=== PATIENT | male | born 1965 | race Caucasian/White ===

== ENCOUNTER 2024-12-13 14:12 | Inpatient (IN) | payer MEDICARE, OTHER ==
[~2024-12-13] VITALS: Ht 185.4 cm; Wt 98.5 kg
[2024-12-15] MEDS ORDERED: ACETAMINOPHEN 325 MG TABLET PO PRN (14:00)
[2024-12-15] MEDS ORDERED: DEXTROSE 50%-WATER 25 GM/50 ML SYRINGE IVP PRN (14:45)
[2024-12-15 15:44] VITALS: BP 124/64; PULSE 90; RESP 19; TEMP 98.2; O2SAT 98
[2024-12-15] MEDS ORDERED: HEPARIN SODIUM,PORCINE 5,000 UNITS/ML VIAL SQ SCH (16:00)
[2024-12-15] MEDS ORDERED: CefTRIAXone 1 GM/DEXTROSE 50 ML IV SCH (17:45)
[2024-12-15] MEDS: INSULIN LISPRO 100 UNITS/ML SQ SCH (17:58)
[2024-12-15 18:15] LABS: GLUCOMETER DEV NAME(LOC) 2WR.2B; GLUCOSE,POINT OF CARE 132 MG/DL (70-110)
[2024-12-15 20:36] VITALS: BP 118/72; PULSE 97; RESP 18; TEMP 97.8; O2SAT 95
[2024-12-15] MEDS: OxyCODONE HCL/ACETAMINOPHEN 5-325 MG TABLET PO PRN (20:36)
[2024-12-15] MEDS: INSULIN LISPRO 100 UNITS/ML SQ PRN (20:40)
[2024-12-15] MEDS: INSULIN GLARGINE,HUM.REC.ANLOG 100 UNITS/ML SQ SCH (20:42)
[2024-12-15 21:21] LABS: GLUCOMETER DEV NAME(LOC) 2WR.1D; GLUCOSE,POINT OF CARE 159 MG/DL (70-110)
[2024-12-16 00:35] VITALS: O2SAT 95
[2024-12-16] MEDS ORDERED: SODIUM CHLORIDE 0.9% 250 ML IV ONE (05:32)
[2024-12-16] MEDS: CefTRIAXone SODIUM 2 GM in DEXTROSE 5%-WATER 50 ML IV SCH (05:48)
[2024-12-16 06:50] LABS: GLUCOMETER DEV NAME(LOC) 2WR.2B; GLUCOSE,POINT OF CARE 109 MG/DL (70-110)
[2024-12-16 07:25] LABS: BASOPHILS % (AUTO) 0.4 % (0.0-2.0); EOSINOPHILS % (AUTO) 0.5 % (1.0-6.0); HEMATOCRIT 21.4 % (41-53); LYMPHOCYTES # (AUTO) 1.8 K/uL (1.0-4.8); LYMPHOCYTES % (AUTO) 27.4 % (22.0-44.0); MEAN CORPUSCULAR HEMOGLOBIN 23.3 pg (26.0-34.0); MEAN CORPUSCULAR HGB CONC 32.2 G/dL (31.0-37.0); MEAN CORPUSCULAR VOLUME 72 fL (80-100); MONOCYTES # (AUTO) 0.7 K/uL (0.1-1.0); MONOCYTES % (AUTO) 10.3 % (2.0-9.0); NEUTROPHILS % (AUTO) 61.4 % (40.0-70.0); PLATELET COUNT (AUTO) 321 K/uL (150-450); RED BLOOD CELL COUNT(AUTO) 2.96 MIL/uL (4.50-5.90); RED CELL DISTRIBUTION WIDTH 15.4 % (11.5-14.5); WHITE BLOOD COUNT (AUTO) 6.5 K/uL (4.5-11.0)
[2024-12-16 07:42] LABS: ALBUMIN 1.7 g/dL (3.4-5.0); BILIRUBIN,TOTAL 0.2 mg/dL (0.1-1.0); CALCIUM, TOTAL 8.4 mg/dL (8.8-10.5); CREATININE 1.43 mg/dL (0.60-1.30); POTASSIUM 4.4 mmol/L (3.5-5.1); TOTAL PROTEIN, SERUM 7.4 g/dL (6.4-8.2)
[2024-12-16 07:52] LABS: HEMOGLOBIN 6.9 g/dL (13.5-17.5); RBC MORPHOLOGY COMMENT ABNORMAL RBC MORPH
[2024-12-16 08:00] VITALS: BP 137/68; PULSE 88; RESP 19; TEMP 98.1; O2SAT 97
[2024-12-16 08:24] LABS: HEMATOCRIT 24.1 % (41-53); HEMOGLOBIN 7.6 g/dL (13.5-17.5)
[2024-12-16] MEDS: ASPIRIN 81 MG CHEWABLE TABLET PO SCH (08:35)
[2024-12-16] MEDS: GABAPENTIN 100 MG CAPSULE PO SCH (08:35)
[2024-12-16] MEDS: BuPROPion HCL XL 150 MG ER TABLET PO SCH (08:35)
[2024-12-16] MEDS: ETHYL ALCOHOL 62% ANTISEPTIC NASAL SANITIZER 0.6 ML AMPUL NASAL SCH (08:35)
[2024-12-16] MEDS: ENOXAPARIN SODIUM 40 MG/0.4 ML PF SYRINGE SQ SCH (08:35)
[2024-12-16] MEDS: ESOMEPRAZOLE MAG TRIHYDRATE 20 MG CAPSULE PO SCH (08:36)
[2024-12-16] MEDS: CALCIUM OYSTER SHELL 250 MG-VIT D3 125 UNITS[3.125MCG] TABLET PO SCH (08:36)
[2024-12-16] MEDS ORDERED: BACLOFEN 10 MG TABLET PO SCH (09:00)
[2024-12-16 10:20] VITALS: BP 158/68; PULSE 105; RESP 18; TEMP 98; O2SAT 100
[2024-12-16] MEDS: 0.9% SODIUM CHLORIDE 10 ML SYRINGE IVP SCH (10:24)
[2024-12-16 10:25] VITALS: BP 150/62; PULSE 100; RESP 18; O2SAT 100
[2024-12-16 10:51] LABS: GLUCOMETER DEV NAME(LOC) 2WR.1D; GLUCOSE,POINT OF CARE 136 MG/DL (70-110)
[2024-12-16 11:00] VITALS: BP 132/63; PULSE 99; RESP 18; TEMP 99.5; O2SAT 99
[2024-12-16 16:39] LABS: APPEARANCE,URINE CLEAR (CLEAR); BILIRUBIN,URINE NEGATIVE (NEGATIVE); COLOR,URINE YELLOW (YELLOW); GLUCOSE, URINE (UA) NEGATIVE (NEGATIVE); KETONES,URINE NEGATIVE (NEGATIVE); LEUKOCYTE ESTERASE ,URINE NEGATIVE (NEGATIVE); NITRATE,URINE NEGATIVE (NEGATIVE); OCCULT BLOOD,URINE SMALL (NEGATIVE); PROTEIN,URINE 30-70 mg/dL (NEGATIVE); SPECIFIC GRAVITIY, URINE 1.024 (1.003-1.030); UROBILINOGEN,URINE <=1.0 mg/dL (<=1.0)
[2024-12-16 16:47] LABS: BACTERIA,URINE Few /HPF (None Seen); SQUAMOUS EPITHELIAL CELL,UR Few /LPF (None Seen); WBC,URINE 0-2 /HPF (0-5)
[2024-12-16 18:21] LABS: GLUCOMETER DEV NAME(LOC) 2WR.1D; GLUCOSE,POINT OF CARE 107 MG/DL (70-110)
[2024-12-16 20:20] VITALS: BP 126/66; PULSE 94; RESP 18; TEMP 97.9; O2SAT 98
[2024-12-16] MEDS: CHLORHEXIDINE GLUCONATE 2% TOWELETTE [2'S/6'S] TP SCH (20:20)
[2024-12-16 22:56] LABS: GLUCOMETER DEV NAME(LOC) 2WR.2B; GLUCOSE,POINT OF CARE 147 MG/DL (70-110)
[2024-12-17 01:45] VITALS: O2SAT 98
[2024-12-17 07:40] LABS: GLUCOMETER DEV NAME(LOC) 2WR.1D; GLUCOSE,POINT OF CARE 138 MG/DL (70-110)
[2024-12-17 07:48] LABS: BASOPHILS % (AUTO) 0.6 % (0.0-2.0); EOSINOPHILS % (AUTO) 1.1 % (1.0-6.0); HEMOGLOBIN 7.6 g/dL (13.5-17.5); LYMPHOCYTES # (AUTO) 2.3 K/uL (1.0-4.8); LYMPHOCYTES % (AUTO) 30.5 % (22.0-44.0); MEAN CORPUSCULAR HEMOGLOBIN 23.2 pg (26.0-34.0); MEAN CORPUSCULAR HGB CONC 31.7 G/dL (31.0-37.0); MEAN CORPUSCULAR VOLUME 73 fL (80-100); MONOCYTES # (AUTO) 0.7 K/uL (0.1-1.0); MONOCYTES % (AUTO) 9.3 % (2.0-9.0); NEUTROPHILS # (AUTO) 4.4 K/uL (1.8-7.7); NEUTROPHILS % (AUTO) 58.5 % (40.0-70.0); PLATELET COUNT (AUTO) 374 K/uL (150-450); RED BLOOD CELL COUNT(AUTO) 3.28 MIL/uL (4.50-5.90); RED CELL DISTRIBUTION WIDTH 15.8 % (11.5-14.5); WHITE BLOOD COUNT (AUTO) 7.5 K/uL (4.5-11.0)
[2024-12-17 08:00] VITALS: BP 146/81; PULSE 88; RESP 19; TEMP 98.1; O2SAT 98
[2024-12-17 08:01] LABS: C-REACTIVE PROTEIN QUANT 5.35 mg/dL (0.00-0.30); CALCIUM, TOTAL 8.6 mg/dL (8.8-10.5); CREATININE 1.49 mg/dL (0.60-1.30); POTASSIUM 4.5 mmol/L (3.5-5.1)
[2024-12-17 12:05] LABS: GLUCOMETER DEV NAME(LOC) 2WR.1D; GLUCOSE,POINT OF CARE 163 MG/DL (70-110)
[2024-12-17 17:51] LABS: GLUCOMETER DEV NAME(LOC) 2WR.1D; GLUCOSE,POINT OF CARE 130 MG/DL (70-110)
[2024-12-17 21:00] VITALS: BP 125/74; PULSE 88; RESP 18; TEMP 98.2; O2SAT 100
[2024-12-17 21:00] LABS: GLUCOMETER DEV NAME(LOC) 2WR.2B; GLUCOSE,POINT OF CARE 139 MG/DL (70-110)
[2024-12-17] MEDS: MELATONIN 5 MG TABLET PO PRN (21:46)
[2024-12-17] MEDS: ASCORBIC ACID 500 MG TABLET PO SCH (21:47)
[2024-12-18 01:22] VITALS: O2SAT 100
[2024-12-18 06:35] LABS: GLUCOMETER DEV NAME(LOC) 2WR.2B; GLUCOSE,POINT OF CARE 130 MG/DL (70-110)
[2024-12-18] MEDS: MULTIVITAMINS WITH MINERALS, THERAPEUTIC TABLET PO SCH (08:20)
[2024-12-18] MEDS: ZINC SULFATE 220 MG CAPSULE PO SCH (08:20)
[2024-12-18 08:30] VITALS: BP 139/82; PULSE 92; RESP 20; TEMP 98.1; O2SAT 98
[2024-12-18 11:56] LABS: GLUCOMETER DEV NAME(LOC) 2WR.1D; GLUCOSE,POINT OF CARE 128 MG/DL (70-110)
[2024-12-18 13:43] VITALS: O2SAT 98
[2024-12-18 17:20] LABS: GLUCOMETER DEV NAME(LOC) 2WR.1D; GLUCOSE,POINT OF CARE 169 MG/DL (70-110)
[2024-12-18 19:56] VITALS: BP 113/69; PULSE 93; RESP 18; TEMP 97.5; O2SAT 98
[2024-12-18] MEDS ORDERED: 0.9% SODIUM CHLORIDE 10 ML SYRINGE IVP SCH (21:00)
[2024-12-18 22:10] LABS: GLUCOMETER DEV NAME(LOC) 2WR.2B; GLUCOSE,POINT OF CARE 90 MG/DL (70-110)
[2024-12-19] MEDS ORDERED: 0.9% SODIUM CHLORIDE 10 ML SYRINGE IVP SCH ×2
[2024-12-19 00:30] VITALS: O2SAT 98
[2024-12-19 07:22] LABS: HEMATOCRIT 21.6 % (41-53); MEAN CORPUSCULAR HEMOGLOBIN 23.6 pg (26.0-34.0); MEAN CORPUSCULAR HGB CONC 32.4 G/dL (31.0-37.0); MEAN CORPUSCULAR VOLUME 73 fL (80-100); PLATELET COUNT (AUTO) 321 K/uL (150-450); RED BLOOD CELL COUNT(AUTO) 2.97 MIL/uL (4.50-5.90); RED CELL DISTRIBUTION WIDTH 16.1 % (11.5-14.5); WHITE BLOOD COUNT (AUTO) 7.3 K/uL (4.5-11.0)
[2024-12-19 07:34] LABS: ALBUMIN 1.8 g/dL (3.4-5.0); BILIRUBIN,TOTAL 0.2 mg/dL (0.1-1.0); C-REACTIVE PROTEIN QUANT 3.16 mg/dL (0.00-0.30); CALCIUM, TOTAL 8.6 mg/dL (8.8-10.5); CREATININE 1.31 mg/dL (0.60-1.30); POTASSIUM 4.5 mmol/L (3.5-5.1); TOTAL PROTEIN, SERUM 7.3 g/dL (6.4-8.2)
[2024-12-19 07:56] LABS: GLUCOMETER DEV NAME(LOC) 2WR.2B; GLUCOSE,POINT OF CARE 125 MG/DL (70-110)
[2024-12-19 08:00] VITALS: BP 138/79; PULSE 88; RESP 18; TEMP 97.5; O2SAT 99
[2024-12-19 08:14] VITALS: BP 120/42; PULSE 96; RESP 18; TEMP 98.2; O2SAT 96; O2SAT 99
[2024-12-19 09:20] LABS: BAND NEUTROPHILS % (MANUAL) 1 % (0-5); EOSINOPHILS % (MANUAL) 1 % (1-6); LYMPHOCYTES % (MANUAL) 30 % (22-44); MONOCYTES % (MANUAL) 7 % (2-9); RBC MORPHOLOGY COMMENT ABNORMAL R; SEGMENTED NEUTROPHILS % 61 % (40-70); TOTAL CELLS COUNTED 100
[2024-12-19 12:46] LABS: GLUCOMETER DEV NAME(LOC) 2WR.1D; GLUCOSE,POINT OF CARE 113 MG/DL (70-110)
[2024-12-19] MEDS ORDERED: SODIUM CHLORIDE 0.9% 0 ML ONE (14:11)
[2024-12-19 18:15] LABS: GLUCOMETER DEV NAME(LOC) 2WR.2B; GLUCOSE,POINT OF CARE 109 MG/DL (70-110)
[2024-12-19 20:16] VITALS: BP 118/70; PULSE 99; RESP 18; TEMP 98.1; O2SAT 97
[2024-12-19 21:00] VITALS: O2SAT 97
[2024-12-19 22:16] LABS: GLUCOMETER DEV NAME(LOC) 2WR.2B; GLUCOSE,POINT OF CARE 108 MG/DL (70-110)
[2024-12-20 07:15] LABS: GLUCOMETER DEV NAME(LOC) 2WR.1D; GLUCOSE,POINT OF CARE 114 MG/DL (70-110)
[2024-12-20 08:00] VITALS: BP 139/77; PULSE 99; RESP 18; TEMP 98.2; O2SAT 99
[2024-12-20 12:20] LABS: GLUCOMETER DEV NAME(LOC) 2WR.1D; GLUCOSE,POINT OF CARE 107 MG/DL (70-110)
[2024-12-20] MEDS: LIDOCAINE 1% 20 ML VIAL ID ONE (17:01)
[2024-12-20 19:31] LABS: GLUCOMETER DEV NAME(LOC) 2WR.2B; GLUCOSE,POINT OF CARE 131 MG/DL (70-110)
[2024-12-20 20:00] VITALS: BP 130/85; PULSE 100; RESP 20; TEMP 98.4; O2SAT 98
[2024-12-21 08:40] VITALS: BP 138/72; PULSE 86; RESP 18; TEMP 98.2; O2SAT 98
[2024-12-21 12:05] LABS: GLUCOMETER DEV NAME(LOC) 2WR.2B; GLUCOSE,POINT OF CARE 100 MG/DL (70-110)
[2024-12-21 13:38] VITALS: O2SAT 98
[2024-12-21 17:06] LABS: GLUCOMETER DEV NAME(LOC) 2WR.1D; GLUCOSE,POINT OF CARE 171 MG/DL (70-110)
[2024-12-21 21:07] VITALS: BP 113/70; PULSE 98; RESP 18; TEMP 98.2; O2SAT 99
[2024-12-21 21:11] LABS: GLUCOMETER DEV NAME(LOC) 2WR.2B; GLUCOSE,POINT OF CARE 189 MG/DL (70-110)
[2024-12-21 21:26] VITALS: O2SAT 99
[2024-12-22 06:41] LABS: GLUCOMETER DEV NAME(LOC) 2WR.2B; GLUCOSE,POINT OF CARE 118 MG/DL (70-110)
[2024-12-22 08:00] VITALS: BP 138/78; PULSE 88; RESP 18; TEMP 98.5; O2SAT 100
[2024-12-22 13:11] LABS: GLUCOMETER DEV NAME(LOC) 2WR.2B; GLUCOSE,POINT OF CARE 130 MG/DL (70-110)
[2024-12-22 18:05] LABS: GLUCOMETER DEV NAME(LOC) 2WR.1D; GLUCOSE,POINT OF CARE 156 MG/DL (70-110)
[2024-12-22 20:30] VITALS: BP 122/70; PULSE 87; RESP 18; TEMP 98.1; O2SAT 100
[2024-12-22 23:56] VITALS: O2SAT 98
[2024-12-23 07:06] LABS: GLUCOMETER DEV NAME(LOC) 2WR.2B; GLUCOSE,POINT OF CARE 112 MG/DL (70-110)
[2024-12-23 08:05] VITALS: BP 130/73; PULSE 86; RESP 18; TEMP 98.4; O2SAT 98
[2024-12-23 12:23] LABS: BASOPHILS % (AUTO) 0.5 % (0.0-2.0); LYMPHOCYTES # (AUTO) 2.3 K/uL (1.0-4.8); LYMPHOCYTES % (AUTO) 35.8 % (22.0-44.0); MEAN CORPUSCULAR HEMOGLOBIN 23.4 pg (26.0-34.0); MEAN CORPUSCULAR HGB CONC 31.7 G/dL (31.0-37.0); MEAN CORPUSCULAR VOLUME 74 fL (80-100); MONOCYTES # (AUTO) 0.5 K/uL (0.1-1.0); MONOCYTES % (AUTO) 7.4 % (2.0-9.0); NEUTROPHILS # (AUTO) 3.6 K/uL (1.8-7.7); NEUTROPHILS % (AUTO) 55.3 % (40.0-70.0); PLATELET COUNT (AUTO) 302 K/uL (150-450); RED BLOOD CELL COUNT(AUTO) 2.81 MIL/uL (4.50-5.90); RED CELL DISTRIBUTION WIDTH 17.1 % (11.5-14.5); WHITE BLOOD COUNT (AUTO) 6.5 K/uL (4.5-11.0)
[2024-12-23 12:30] LABS: HEMOGLOBIN 6.6 g/dL (13.5-17.5)
[2024-12-23 12:31] LABS: HEMATOCRIT 20.8 % (41-53)
[2024-12-23 12:40] LABS: GLUCOMETER DEV NAME(LOC) 2WR.1D; GLUCOSE,POINT OF CARE 127 MG/DL (70-110)
[2024-12-23 13:02] LABS: HEMATOCRIT 26.8 % (41-53); HEMOGLOBIN 8.3 g/dL (13.5-17.5)
[2024-12-23 13:10] LABS: RBC MORPHOLOGY COMMENT ABNORMAL RBC MORPH
[2024-12-23 15:14] VITALS: O2SAT 98
[2024-12-23 17:25] LABS: GLUCOMETER DEV NAME(LOC) 2WR.1D; GLUCOSE,POINT OF CARE 170 MG/DL (70-110)
[2024-12-23 17:52] VITALS: BP 133/93; PULSE 87; RESP 18; TEMP 98.2; O2SAT 98
== END 2024-12-23 20:00 | DRG 871 ==
LOC: 2WR 12-15 13:47
PROVIDERS: ADMIT Physical Medicine & Rehabilitation; ATTEND Physical Medicine & Rehabilitation
DX: A41.01 Sepsis due to Methicillin susceptible Staphylococcus aureus (principal); R65.21 Severe sepsis with septic shock; L03.116 Cellulitis of left lower limb; E46 Unspecified protein-calorie malnutrition; N39.0 Urinary tract infection, site not specified; N17.9 Acute kidney failure, unspecified; L03.115 Cellulitis of right lower limb; L89.629 Pressure ulcer of left heel, unspecified stage; L89.619 Pressure ulcer of right heel, unspecified stage; F32.9 Major depressive disorder, single episode, unspecified; N18.9 Chronic kidney disease, unspecified; E11.22 Type 2 diabetes mellitus with diabetic chronic kidney disease; D50.9 Iron deficiency anemia, unspecified; D86.85 Sarcoid myocarditis; E11.40 Type 2 diabetes mellitus with diabetic neuropathy, unspecified; G47.33 Obstructive sleep apnea (adult) (pediatric); K21.9 Gastro-esophageal reflux disease without esophagitis; M47.812 Spondylosis without myelopathy or radiculopathy, cervical region; G89.29 Other chronic pain; Z74.09 Other reduced mobility; R53.81 Other malaise; N20.0 Calculus of kidney; M54.50 Low back pain, unspecified; R53.83 Other fatigue; R53.1 Weakness; I95.9 Hypotension, unspecified; R23.8 Other skin changes; L27.0 Generalized skin eruption due to drugs and medicaments taken internally; E11.51 Type 2 diabetes mellitus with diabetic peripheral angiopathy without gangrene; R26.89 Other abnormalities of gait and mobility; R91.8 Other nonspecific abnormal finding of lung field; Z95.810 Presence of automatic (implantable) cardiac defibrillator; Z68.28 Body mass index [BMI] 28.0-28.9, adult; Z88.8 Allergy status to other drugs, medicaments and biological substances; T36.1X5D Adverse effect of cephalosporins and other beta-lactam antibiotics, subsequent encounter
CPT/HCPCS: 71045; 80048; 80053; 81001; 82962; 84145; 85007; 85014; 85018; 85025; 85027; 86140; 87040; 87070; 87081; 87205; 93970; 97110; 97116; 97162; 97166; 97530; 97535; 99366; J0696; J1650; J1815; J3490; J7030; J7050; J7060; 36415-L1; 36415-TC